=== PATIENT | female | born 1975 | race Caucasian/White ===

== ENCOUNTER 2021-07-07 14:13 | Outpatient (CLI) | payer BC | END 2021-07-07 14:14 | disposition home or self-care (01) | LOC: TBSIIMAG 14:13 | PROVIDERS: ATTEND Surgery | DX: M54.2 Cervicalgia (principal); R20.8 Other disturbances of skin sensation; M47.812 Spondylosis without myelopathy or radiculopathy, cervical region; M25.78 Osteophyte, vertebrae; M50.30 Other cervical disc degeneration, unspecified cervical region; M43.12 Spondylolisthesis, cervical region | CPT/HCPCS: 72040; 72141 ==